=== PATIENT | female | born 1945 | race Caucasian/White ===

== ENCOUNTER 2017-06-13 14:45 | Inpatient (IN) | payer OTHER ==
[~2017-06-13] VITALS: Ht 165.1 cm; Wt 67.1 kg
[~2017-06-13 14:45] MED LIST: AMLODIPINE BESY10 MG PO; ASPI-COR81 M1 PO; CLINDAMYCIN HC300 MG PO; COREG25 MG PO; COUMADIN5 M2 PO; FLEXERIL5 MG PO; HYDROCODONE BIT1 T11 PO; KEFLEX500 MG PO; LEVAQUIN750 MG PO; LISINOPRIL20 MG PO; METFORMIN1000 MG PO; MOTRIN800 MG PO; NORVASC5 MG PO; PLAVIX75 MG PO; ULTRAM50 MG PO
[2017-06-13 14:51] VITALS: BP 125/71
[2017-06-13 15:20] LABS: BASO # 0.1 10*3/uL (0.0-0.1); BASO % 0.7 % (0.0-1.0); EOS # 0.2 10*3/uL (0.0-0.4); EOS % 2.5 % (1.0-4.0); HEMATOCRIT 33.3 % (37.0-47.0); HEMOGLOBIN 10.9 g/dl (12.0-16.0); LYMPH # 1.4 10*3/uL (1.3-4.4); LYMPH % 16.5 % (27.0-41.0); MEAN CELL VOLUME 94.1 fl (81.0-99.0); MEAN CORPUSCULAR HGB 30.8 pg (27.0-31.0); MEAN CORPUSCULAR HGB CONC 32.7 g/dl (33.0-37.0); MEAN PLATELET VOLUME 10.6 fl (9.6-12.3); MONO # 0.9 10*3/uL (0.1-1.0); MONO % 10.5 % (3.0-9.0); NEUT # 5.9 10*3/uL (2.3-7.9); NEUT % 69.4 % (47.0-73.0); PLATELET COUNT AUTOMATED 275 10*3/uL (130-400); RED BLOOD COUNT 3.54 10*6/uL (4.10-5.10); RED CELL DISTRI WIDTH 12.8 % (0-14.5); WHITE BLOOD COUNT 8.5 10*3/uL (4.8-10.8)
[2017-06-13 15:28] LABS: ACT PARTIAL THROMBO TIME 24.8 SECONDS (20.8-31.5)
[2017-06-13 15:36] LABS: ALBUMIN 3.3 gm/dl (3.1-4.5); ALKALINE PHOSPHATASE 74 U/L (45-117); BUN 26 mg/dl (7-24); CHLORIDE 103 mmol/L (98-107); CREATININE 1.37 mg/dL (0.55-1.02); POTASSIUM 4.3 mmol/L (3.5-5.1); SGOT/AST 14 IU/L (3-35); SGPT/ALT 21 U/L (12-78); SODIUM 138 mmol/L (136-145); TOTAL PROTEIN 6.6 gm/dL (6.4-8.2)
[2017-06-13 15:41] LABS: LIPASE 2376 U/L (73-393); TROPONIN I < 0.015 ng/ml (<0.045)
[2017-06-13 16:00] VITALS: BP 125/71
[2017-06-13 16:20] LABS: BILIRUBIN NEGATIVE (NEGATIVE); BLOOD NEGATIVE (NEGATIVE); CLARITY CLEAR (CLEAR); COLOR YELLOW (YELLOW); GLUCOSE NEGATIVE (NEGATIVE); KETONE NEGATIVE (NEGATIVE); LEUKO ESTERASE 1+ (NEGATIVE); NITRITE NEGATIVE (NEGATIVE); UROBILINOGEN 0.2 E.U./dl (0.2-1.0)
[2017-06-13 16:31] LABS: BACTERIA TRACE
--- NOTE | 2017-06-13 17:17 | NUR ---
PT STATES THAT ZOFRAN WAS EFFECTIVE AT THIS TIME. WILL CONTINUE TO MONITOR.
--- NOTE | 2017-06-13 18:00 | NUR ---
A 72, admitted to 5E, under the services of CHACORTA Ornelas DO with a diagnosis of PANCREATITIS, DIZZINESS, RENAL INSUFFICIENCY. Chief complaint is DIZZINESS. Patient arrived via bed from ER. Monitor applied. Initial assessment completed. Vital signs taken and recorded. CHACORTA ORNELAS DO notified of admission to the unit. Orders received. See assessment for past medical history, medications and allergies. Patient and/or family oriented to unit. visitation policy reviewed. Clothing/patient valuable form completed. MIKE MENJIVAR
[2017-06-13 18:06] VITALS: BP 150/90
[2017-06-13 20:00] VITALS: BP 159/71
[2017-06-14] VITALS: BP 128/89
--- NOTE | 2017-06-14 01:22 | NUR ---
24 HR chart check completed.
[2017-06-14 06:41] LABS: BASO # 0.1 10*3/uL (0.0-0.1); BASO % 0.8 % (0.0-1.0); EOS # 0.3 10*3/uL (0.0-0.4); EOS % 4.3 % (1.0-4.0); HEMATOCRIT 31.9 % (37.0-47.0); HEMOGLOBIN 10.5 g/dl (12.0-16.0); LYMPH # 1.3 10*3/uL (1.3-4.4); LYMPH % 21.1 % (27.0-41.0); MEAN CELL VOLUME 93.5 fl (81.0-99.0); MEAN CORPUSCULAR HGB 30.8 pg (27.0-31.0); MEAN CORPUSCULAR HGB CONC 32.9 g/dl (33.0-37.0); MEAN PLATELET VOLUME 10.8 fl (9.6-12.3); MONO # 0.8 10*3/uL (0.1-1.0); MONO % 13.6 % (3.0-9.0); NEUT # 3.7 10*3/uL (2.3-7.9); NEUT % 59.9 % (47.0-73.0); PLATELET COUNT AUTOMATED 261 10*3/uL (130-400); RED BLOOD COUNT 3.41 10*6/uL (4.10-5.10); RED CELL DISTRI WIDTH 12.8 % (0-14.5); WHITE BLOOD COUNT 6.1 10*3/uL (4.8-10.8)
[2017-06-14 07:16] LABS: ALBUMIN 3.1 gm/dl (3.1-4.5); ALKALINE PHOSPHATASE 66 U/L (45-117); CHLORIDE 107 mmol/L (98-107); CHOLESTEROL 105 mg/dL (<200); CREATININE 1.02 mg/dL (0.55-1.02); HDL CHOLESTEROL 51 mg/dl (40-60); LDL CHOLESTEROL 42 mg/dL (9-159); LIPASE 377 U/L (73-393); MAGNESIUM 1.6 mg/dL (1.5-2.1); POTASSIUM 3.7 mmol/L (3.5-5.1); SGOT/AST 11 IU/L (3-35); SGPT/ALT 17 U/L (12-78); SODIUM 143 mmol/L (136-145); TOTAL PROTEIN 6.2 gm/dL (6.4-8.2); TRIGLYCERIDES 59 mg/dl (<150); VLDL CHOLESTEROL 12 mg/dL (6-40)
[2017-06-14 07:23] LABS: BUN 16 mg/dl (7-24)
[2017-06-14 07:50] LABS: VITAMIN D, 25-HYDROXY 32.6 ng/mL (30-100)
[2017-06-14 08:00] VITALS: BP 152/64
--- NOTE | 2017-06-14 09:00 | NUR ---
Medical Laboratory Scientist in to talk to patient. Patient states lives at home with family. There are few steps in the home. Physician: iqra sanchez Pharmacy: [facility] Home health services: none Patient's level of ADLs: INDEPENDENT Patient has working utilities: all working DME: none Follow-up physician's appointment after d/c: will be made by hospitalist nurse director upon discharge Does patient want to access PORTAL?: no Discharge plan discussed with patient, patient lives at home with family, states she is independent in adls and ambulation, drives, but currently doesn't have a car, states her daughter takes her to get groceries, patient states she will be going back home and denies any home needs. DASH DANG
--- NOTE | 2017-06-14 09:04 | NUR ---
PATIENT TAKEN OFF FLOOR FOR SCHEDULED US OF GALLBLADDER.
--- NOTE | 2017-06-14 10:28 | NUR ---
PHYSICAL THERAPY Physical Therapy Evaluation completed this date. See eval document for complete details. No inpnt PT services needed at this time. Recommend OP PT to address back pain should symptoms not resolve by d/c[place] [id number] based on chart review and PT eval. Lilia Rhoades, PT
[2017-06-14 12:00] VITALS: BP 155/66
--- NOTE | 2017-06-14 13:56 | NUR ---
PT MEDICATED WITH IV MORPHINE SLOWLY PER PRN ORDER FOR C/O PAIN/DISCOMFORT. RATES PAIN 06/03. WILL MONITOR EFFECTIVENESS.
--- NOTE | 2017-06-14 14:30 | NUR ---
PATIENT STATES EARLIER PAIN MEDICATION NOT EFFECTIVE.
[2017-06-14] MEDS ORDERED: LASIX20 MG PO (15:07)
[2017-06-14] MEDS ORDERED: LISINOPRIL20 MG PO (15:08)
[2017-06-14] MEDS ORDERED: LIPITOR40 MG PO (15:09)
[2017-06-14] MEDS ORDERED: XANAX0.5 MG PO (15:11)
--- NOTE | 2017-06-14 15:18 | NUR ---
NOTIFIED REGARDING UPDATED MED REC.
[2017-06-14 16:00] VITALS: BP 160/58
--- NOTE | 2017-06-14 17:43 | NUR ---
PATIENT STATES SHE IS NO LONGER IN PAIN AT THIS TIME. RESPIRATIONS EASY, REGULAR. DENIES ANY SOB. WILL CONTINUE TO MONITOR. CALL LIGHT WITHIN REACH.
[2017-06-14 20:00] VITALS: BP 144/48
--- NOTE | 2017-06-14 20:00 | NUR ---
AMBULATING HALLWAY. STEADY GAIT. RESPIRATIONS EASY. NO DISTRESS NOTED. NO VOICED COMPLAINTS
--- NOTE | 2017-06-14 21:00 | NUR ---
RESTING IN BED WITH NO DISTRESS NOTED. RESPIRATIONS EASY. LUNGS DIMINISHED, CLEAR. PULSE OX 100% RA. DENIES ABD PAIN. CALL LIGHT WITHIN REACH. NO VOICED COMPLAINTS
[2017-06-15] VITALS: BP 160/62
--- NOTE | 2017-06-15 | NUR ---
SLEEPING. NO DISTRESS NOTED. RESPIRATIONS EASY. VSS. CALL LIGHT WITHIN REACH.
--- NOTE | 2017-06-15 06:00 | NUR ---
SLEPT THROUGHOUT NIGHT WITH NO DISTRESS NOTED. RESPIRATIONS EASY. DENIES ABD PAIN. CALL LIGHT WITHIN REACH. NO VOICED COMPLAINTS THIS SHIFT
[2017-06-15 08:00] VITALS: BP 180/76
--- NOTE | 2017-06-15 09:00 | NUR ---
case management visits with patient, patient denies any home needs at this time
[2017-06-15] MEDS ORDERED: CIPRO500 MG PO (11:38)
[2017-06-15] MEDS ORDERED: FLAGYL500 MG PO (11:38)
--- NOTE | 2017-06-15 12:11 | NUR ---
Discharge instructions reviewed with patient/family. Patient receptive and verbalizes understanding. Follow-up care arranged. Written instructions given to patient/family. EVONNE BARROSO
== END 2017-06-15 12:11 | disposition home or self-care (01) | DRG 438 ==
LOC: ED 14:45 → EDHOLD 16:10 → 5E 16:10
PROVIDERS: Internal Medicine; Physician Assistant; ADMIT Internal Medicine
DX: K85.90 Acute pancreatitis without necrosis or infection, unspecified (principal); N17.0 Acute kidney failure with tubular necrosis; E87.2 Acidosis; E44.0 Moderate protein-calorie malnutrition; N39.0 Urinary tract infection, site not specified; E11.65 Type 2 diabetes mellitus with hyperglycemia; D64.9 Anemia, unspecified; K52.9 Noninfective gastroenteritis and colitis, unspecified; E86.0 Dehydration; I25.10 Atherosclerotic heart disease of native coronary artery without angina pectoris; M51.36 Other intervertebral disc degeneration, lumbar region; I10 Essential (primary) hypertension; E78.5 Hyperlipidemia, unspecified; M19.90 Unspecified osteoarthritis, unspecified site; M47.896 Other spondylosis, lumbar region; G89.29 Other chronic pain; M54.9 Dorsalgia, unspecified; Z79.84 Long term (current) use of oral hypoglycemic drugs; Z88.0 Allergy status to penicillin; Z79.1 Long term (current) use of non-steroidal anti-inflammatories (NSAID); Z79.899 Other long term (current) drug therapy; I25.2 Old myocardial infarction; Z95.5 Presence of coronary angioplasty implant and graft; Z98.51 Tubal ligation status; Z80.1 Family history of malignant neoplasm of trachea, bronchus and lung; Z83.79 Family history of other diseases of the digestive system; Z68.24 Body mass index [BMI] 24.0-24.9, adult

== ENCOUNTER 2017-11-06 16:44 | Inpatient (IN) | payer OTHER ==
[~2017-11-06] VITALS: Ht 165.1 cm; Wt 68.2 kg
--- NOTE | ~2017-11-06 | ST ---
[place], [place] EXERCISE STRESS TEST REPORT [id number] UN[facility] #: [id number] ROOM: 507 DOCTOR: JONNA MARTÍNEZ [facility],[place] BIRTHDATE: [birth year] DOS: 11/08/2017 LEXISCAN REPORT The patient received Lexiscan 0.4 mg over 10 seconds. Heart rate is 98. Isotope was injected. Myocardial perfusion scan to follow. No complication noted. No electrocardiographic changes for myocardial ischemia noted. MACEY COYLE MD CM:STRESS:EXERCISE STRESS TEST REPORT [id number] BECKY NELSON MD [facility]
--- NOTE | ~2017-11-06 | EKG ---
[place], [place] ELECTROCARDIOGRAM REPORT NAME: MAEVE AYERS UNIT #: [id number] ROOM: 507 DOCTOR: JONNA MARTÍNEZ [facility],[place] BIRTHDATE: [birth year] DOS: 11/06/2017 TIME: 17:43. CONCLUSION: 1. Sinus. 2. Nonspecific ST changes, old anteroseptal infarction cannot be excluded. MACEY COYLE MD CM:EKGRPT:ELECTROCARDIOGRAM REPORT 1348 1431 MACEY COYLE MD [facility]
--- NOTE | ~2017-11-06 | EKG ---
[place], [place] ELECTROCARDIOGRAM REPORT NAME: MAEVE AYERS UNIT #: [id number] ROOM: 507 DOCTOR: JONNA MARTÍNEZ [facility],[place] BIRTHDATE: [birth year] DOS: 11/06/2017 TIME: 23:47 CONCLUSION: 1. Sinus. 2. Old anti-septal infarction. 3. Low voltage in limb leads, nonspecific ST changes. MACEY COYLE MD CM:EKGRPT:ELECTROCARDIOGRAM REPORT 1348 1429 MACEY COYLE MD [facility]
--- NOTE | ~2017-11-06 | EKG ---
[place], [place] ELECTROCARDIOGRAM REPORT NAME: MAEVE AYERS UNIT #: [id number] ROOM: 507 DOCTOR: JONNA MARTÍNEZ [facility],[place] BIRTHDATE: [birth year] DOS: 11/06/2017 TIME: 20:31. CONCLUSION: 1. Sinus. 2. Poor R-wave progression in the precordial leads, nonspecific ST changes. MACEY COYLE MD CM:EKGRPT:ELECTROCARDIOGRAM REPORT 1348 1430 MACEY COYLE MD [facility]
--- NOTE | ~2017-11-06 | CON ---
[place], [place] REPORT OF CONSULTATION NAME: MAEVE AYERS [facility] #: [id number] UNIT #: [id number] ROOM: 507 DOCTOR[facility] [birth year] DOS: 11/07/2017 CARDIOLOGY CONSULTATION PRIMARY CARE PHYSICIAN: Jake Fitch DO. HISTORY OF PRESENT ILLNESS: The patient is a 72-year-old female came in through the Emergency Room with right hand fracture and pain, has a cast now. The orthopedic surgeon is going to see her today. The patient also has upper chest discomfort radiating into the side of the neck and the arm. The patient denies any recent workup done for underlying coronary artery disease or ischemic heart disease. The patient apparently caught in and also fell down and had fracture of the right hand. The patient has history of burning sensation in the chest. History of coronary stents with coronary artery disease. No recent workup. The patient is not sure whether any recent stress or echocardiogram at least a couple of years. The patient eventually ____ under lot of stress as some of the members going through the detoxification. The patient also has extreme anxiety. The patient came to the Emergency Room. The patient denies any dizziness, syncope or presyncope. The patient has systolic hypertension and creatinine is 1.24 and probably mild chronic kidney disease, probably stage 3. The patient apparently has brittle bones and similar problem in the past. Diabetes mellitus, degenerative disk disease, dyslipidemia, history of hypertension, myocardial infarction in the past and has coronary stenting in the past. PAST SURGICAL HISTORY: The patient has a history of tubal ligation and coronary stent. SOCIAL HISTORY: The patient denies any smoking. No alcohol or illicit drugs, but there is a lot of secondhand smoking of most of the members in the house and she gets lot of that. PHYSICAL EXAMINATION: GENERAL: Alert, not in any acute distress. No jugular venous distention noted. VITAL SIGNS: Blood pressure 155/79, 156/49, 164/61, systolic hypertension and heart rate is about 70. Afebrile. SKIN: Warm, not diaphoretic. NECK: No jugular venous distention. LUNGS: No rales heard. HEART: S1, S2 regular. No gallops. ABDOMEN: Soft. Color is good. EXTREMITIES: No peripheral edema noted. Pulses are good. Posterior tibialis 3+. RECTAL, GENITAL AND BREASTS: Deferred unrelated. IMPRESSION: Underlying angina and coronary artery disease, coronary stent, hypertension, dyslipidemia, diabetes mellitus, secondary smoking significant. PLAN: Lexiscan with a Cardiolite to evaluate for ischemic heart disease and also echocardiogram. [place], [place] REPORT OF CONSULTATION NAME: MAEVE AYERS UNIT #: [id number] ROOM: 507 DOCTOR: JONNA MARTÍNEZ [facility],[place] BIRTHDATE: [birth year] MACEY COYLE MD CM:CONSTR:REPORT OF CONSULTATION 0752 11/07/17 0907 carlee VOGEL DO
[~2017-11-06 16:44] MED LIST changes: +CIPRO500 MG PO; +FLAGYL500 MG PO; +LASIX20 MG PO; +LIPITOR40 MG PO; +XANAX0.5 MG PO
[2017-11-06 17:05] VITALS: BP 153/81
[2017-11-06 17:56] LABS: BASO # 0.1 10*3/uL (0.0-0.1); BASO % 0.7 % (0.0-1.0); EOS # 0.2 10*3/uL (0.0-0.4); EOS % 2.4 % (1.0-4.0); HEMATOCRIT 34.3 % (37.0-47.0); HEMOGLOBIN 11.3 g/dl (12.0-16.0); LYMPH # 1.3 10*3/uL (1.3-4.4); MEAN CELL VOLUME 93.5 fl (81.0-99.0); MEAN CORPUSCULAR HGB 30.8 pg (27.0-31.0); MEAN CORPUSCULAR HGB CONC 32.9 g/dl (33.0-37.0); MEAN PLATELET VOLUME 10.3 fl (9.6-12.3); MONO # 0.8 10*3/uL (0.1-1.0); MONO % 10.9 % (3.0-9.0); NEUT # 5.1 10*3/uL (2.3-7.9); NEUT % 68.7 % (47.0-73.0); PLATELET COUNT AUTOMATED 311 10*3/uL (130-400); RED BLOOD COUNT 3.67 10*6/uL (4.10-5.10); RED CELL DISTRI WIDTH 12.8 % (0-14.5); WHITE BLOOD COUNT 7.4 10*3/uL (4.8-10.8)
[2017-11-06 18:08] LABS: ACT PARTIAL THROMBO TIME 23.5 SECONDS (20.8-31.5)
[2017-11-06 18:12] LABS: ALBUMIN 3.3 gm/dl (3.1-4.5); ALKALINE PHOSPHATASE 93 U/L (45-117); BUN 30 mg/dl (7-24); CHLORIDE 103 mmol/L (98-107); CREATININE 1.24 mg/dL (0.55-1.02); POTASSIUM 4.2 mmol/L (3.5-5.1); SGOT/AST 12 IU/L (3-35); SGPT/ALT 20 U/L (12-78); SODIUM 140 mmol/L (136-145); TOTAL PROTEIN 7.2 gm/dL (6.4-8.2)
[2017-11-06 18:13] LABS: TROPONIN I < 0.015 ng/ml (<0.045)
[2017-11-06 20:21] VITALS: BP 135/78
[2017-11-06 21:00] VITALS: BP 164/61
[2017-11-06] MEDS ORDERED: COREG12.5 M1 PO (21:12)
[2017-11-07] VITALS: BP 156/49
[2017-11-07 04:33] VITALS: BP 155/79
[2017-11-07 07:18] LABS: BASO # 0.1 10*3/uL (0.0-0.1); BASO % 0.9 % (0.0-1.0); EOS # 0.3 10*3/uL (0.0-0.4); EOS % 3.4 % (1.0-4.0); HEMATOCRIT 35.1 % (37.0-47.0); HEMOGLOBIN 11.6 g/dl (12.0-16.0); LYMPH # 1.3 10*3/uL (1.3-4.4); LYMPH % 16.3 % (27.0-41.0); MEAN CELL VOLUME 92.1 fl (81.0-99.0); MEAN CORPUSCULAR HGB 30.4 pg (27.0-31.0); MONO # 0.9 10*3/uL (0.1-1.0); MONO % 11.4 % (3.0-9.0); NEUT # 5.2 10*3/uL (2.3-7.9); NEUT % 67.6 % (47.0-73.0); PLATELET COUNT AUTOMATED 310 10*3/uL (130-400); RED BLOOD COUNT 3.81 10*6/uL (4.10-5.10); RED CELL DISTRI WIDTH 12.8 % (0-14.5); WHITE BLOOD COUNT 7.7 10*3/uL (4.8-10.8)
[2017-11-07 07:41] LABS: CHLORIDE 105 mmol/L (98-107); POTASSIUM 3.7 mmol/L (3.5-5.1); SODIUM 142 mmol/L (136-145)
[2017-11-07 08:00] VITALS: BP 144/64
[2017-11-07 08:22] LABS: ALBUMIN 3.2 gm/dl (3.1-4.5); ALKALINE PHOSPHATASE 81 U/L (45-117); BUN 24 mg/dl (7-24); CHOLESTEROL 130 mg/dL (<200); CREATININE 0.96 mg/dL (0.55-1.02); HDL CHOLESTEROL 64 mg/dl (40-60); LDL CHOLESTEROL 48 mg/dL (9-159); SGOT/AST 11 IU/L (3-35); SGPT/ALT 17 U/L (12-78); TOTAL PROTEIN 6.6 gm/dL (6.4-8.2); TRIGLYCERIDES 89 mg/dl (<150); VLDL CHOLESTEROL 18 mg/dL (6-40)
[2017-11-07 12:00] VITALS: BP 135/68
[2017-11-07 16:00] VITALS: BP 154/56
[2017-11-07 20:00] VITALS: BP 141/50
[2017-11-08] VITALS: BP 159/63
[2017-11-08 09:13] VITALS: BP 169/65
[2017-11-08 09:45] VITALS: BP 162/64
[2017-11-08 16:00] VITALS: BP 158/50
[2017-11-08 20:00] VITALS: BP 144/57
[2017-11-09] VITALS: BP 150/69
[2017-11-09 08:00] VITALS: BP 153/69
[2017-11-09 12:00] VITALS: BP 150/72
[2017-11-09] MEDS ORDERED: VITAMIN D-32000 UNIT PO (15:47)
== END 2017-11-09 16:35 | disposition home or self-care (01) | DRG 563 ==
LOC: ED 16:44 → EDHOLD 19:30 → 5E 19:30
PROVIDERS: Emergency Medicine; Family Medicine Adult Medicine
PROC: 4A02XM4 Measurement of Cardiac Total Activity, External Approach (ICD-10-PCS; principal; 2017-11-08)
PROC: 3E073KZ Introduction of Other Diagnostic Substance into Coronary Artery, Percutaneous Approach (ICD-10-PCS; 2017-11-08)
PROC: 2W3EX1Z Immobilization of Right Hand using Splint (ICD-10-PCS; 2017-11-08)
DX: S62.346B Nondisplaced fracture of base of fifth metacarpal bone, right hand, initial encounter for open fracture (principal); E11.22 Type 2 diabetes mellitus with diabetic chronic kidney disease; E11.65 Type 2 diabetes mellitus with hyperglycemia; I24.8 Other forms of acute ischemic heart disease; D64.9 Anemia, unspecified; E78.5 Hyperlipidemia, unspecified; N18.3 Chronic kidney disease, stage 3 (moderate); R07.9 Chest pain, unspecified; R94.30 Abnormal result of cardiovascular function study, unspecified; I12.9 Hypertensive chronic kidney disease with stage 1 through stage 4 chronic kidney disease, or unspecified chronic kidney disease; I25.119 Atherosclerotic heart disease of native coronary artery with unspecified angina pectoris; F41.9 Anxiety disorder, unspecified; W23.0XXA Caught, crushed, jammed, or pinched between moving objects, initial encounter; Y93.89 Activity, other specified; Y92.89 Other specified places as the place of occurrence of the external cause; Y99.8 Other external cause status; Z87.440 Personal history of urinary (tract) infections; I25.2 Old myocardial infarction; Z88.0 Allergy status to penicillin; Z95.5 Presence of coronary angioplasty implant and graft; Z98.51 Tubal ligation status; Z83.3 Family history of diabetes mellitus; Z82.3 Family history of stroke; Z83.79 Family history of other diseases of the digestive system; Z80.1 Family history of malignant neoplasm of trachea, bronchus and lung; Z84.89 Family history of other specified conditions; Z79.899 Other long term (current) drug therapy; Z79.02 Long term (current) use of antithrombotics/antiplatelets

== ENCOUNTER → 2018-01-28 | Outpatient (CLI) | payer OTHER ==
[~2018-01-28] MED LIST changes: +COREG12.5 M1 PO; +VITAMIN D-32000 UNIT PO
== END | disposition home or self-care (01) ==
LOC: RESCLI 02:50
DX: I12.9 Hypertensive chronic kidney disease with stage 1 through stage 4 chronic kidney disease, or unspecified chronic kidney disease (principal); E11.22 Type 2 diabetes mellitus with diabetic chronic kidney disease; N18.3 Chronic kidney disease, stage 3 (moderate); I25.10 Atherosclerotic heart disease of native coronary artery without angina pectoris; E78.5 Hyperlipidemia, unspecified; M19.90 Unspecified osteoarthritis, unspecified site; F41.9 Anxiety disorder, unspecified; M62.838 Other muscle spasm; Z88.0 Allergy status to penicillin

== ENCOUNTER 2018-04-14 19:39 | Emergency (ER) | payer OTHER ==
[~2018-04-14] VITALS: Ht 165.1 cm; Wt 63.0 kg
[2018-04-14 19:41] VITALS: BP 164/76
[2018-04-14] MEDS ORDERED: ANAPROX DS550 MG PO (21:28)
== END 2018-04-14 21:29 | disposition home or self-care (01) ==
LOC: ED 19:39
DX: M25.511 Pain in right shoulder (principal); M79.641 Pain in right hand; Z88.0 Allergy status to penicillin; Z79.899 Other long term (current) drug therapy

== ENCOUNTER → 2018-05-01 | Outpatient (CLI) | payer OTHER ==
[~2018-05-01] MED LIST changes: +ANAPROX DS550 MG PO
== END | disposition home or self-care (01) ==
LOC: RESCLI 08:58
DX: I12.9 Hypertensive chronic kidney disease with stage 1 through stage 4 chronic kidney disease, or unspecified chronic kidney disease (principal); E11.22 Type 2 diabetes mellitus with diabetic chronic kidney disease; N18.3 Chronic kidney disease, stage 3 (moderate); I25.10 Atherosclerotic heart disease of native coronary artery without angina pectoris; I95.1 Orthostatic hypotension; E78.5 Hyperlipidemia, unspecified; M19.90 Unspecified osteoarthritis, unspecified site; F41.9 Anxiety disorder, unspecified; E55.9 Vitamin D deficiency, unspecified; R53.1 Weakness; R42 Dizziness and giddiness; Z88.0 Allergy status to penicillin

== ENCOUNTER → 2018-05-01 | Outpatient (CLI) | payer OTHER | END | disposition home or self-care (01) | LOC: LAB 16:49 | PROVIDERS: Internal Medicine Nephrology | DX: R53.83 Other fatigue (principal) ==

== ENCOUNTER 2019-06-04 17:19 | Emergency (ER) | payer OTHER ==
[~2019-06-04] VITALS: Ht 165.1 cm; Wt 65.8 kg
[2019-06-04 17:21] VITALS: BP 172/68
[2019-06-04] MEDS ORDERED: CLEOCIN HCL150 MG PO (18:33)
== END 2019-06-04 18:52 | disposition home or self-care (01) ==
LOC: ED 17:19
DX: K04.7 Periapical abscess without sinus (principal); E11.9 Type 2 diabetes mellitus without complications; I10 Essential (primary) hypertension; I25.10 Atherosclerotic heart disease of native coronary artery without angina pectoris; Z95.5 Presence of coronary angioplasty implant and graft; Z98.51 Tubal ligation status; Z79.899 Other long term (current) drug therapy; Z88.0 Allergy status to penicillin; Z86.73 Personal history of transient ischemic attack (TIA), and cerebral infarction without residual deficits; Z86.718 Personal history of other venous thrombosis and embolism

== ENCOUNTER → 2019-10-16 | Outpatient (CLI) | payer OTHER ==
[~2019-10-16] MED LIST changes: +CLEOCIN HCL150 MG PO; +IMDUR SA60 M1 PO; +LEVAQUIN750 M1 PO
[2019-10-16 14:35] LABS: BASO # 0.1 10*3/uL (0.0-0.1); BASO % 0.8 % (0.0-1.0); EOS # 0.2 10*3/uL (0.0-0.4); EOS % 2.8 % (1.0-4.0); HEMATOCRIT 39.5 % (37.0-47.0); HEMOGLOBIN 12.7 g/dl (12.0-16.0); LYMPH # 1.4 10*3/uL (1.3-4.4); LYMPH % 18.6 % (27.0-41.0); MEAN CELL VOLUME 96.6 fl (81.0-99.0); MEAN CORPUSCULAR HGB 31.1 pg (27.0-31.0); MEAN CORPUSCULAR HGB CONC 32.2 g/dl (33.0-37.0); MEAN PLATELET VOLUME 10.5 fl (9.6-12.3); MONO # 0.9 10*3/uL (0.1-1.0); MONO % 11.9 % (3.0-9.0); NEUT # 4.9 10*3/uL (2.3-7.9); NEUT % 65.8 % (47.0-73.0); PLATELET COUNT AUTOMATED 269 10*3/uL (130-400); RED BLOOD COUNT 4.09 10*6/uL (4.10-5.10); WHITE BLOOD COUNT 7.4 10*3/uL (4.8-10.8)
[2019-10-16 15:04] LABS: ALBUMIN 3.4 gm/dl (3.1-4.5); CREATININE 1.4 mg/dL (0.55-1.02); PHOSPHOROUS 3.2 mg/dL (2.5-4.9); POTASSIUM 4.2 mmol/L (3.5-5.1); TOTAL PROTEIN 6.8 gm/dL (6.4-8.2)
== END | disposition home or self-care (01) ==
LOC: RESCLI 13:07
PROVIDERS: Hospitalist
DX: Z12.11 Encounter for screening for malignant neoplasm of colon (principal); Z12.39 Encounter for other screening for malignant neoplasm of breast; I12.9 Hypertensive chronic kidney disease with stage 1 through stage 4 chronic kidney disease, or unspecified chronic kidney disease; E11.22 Type 2 diabetes mellitus with diabetic chronic kidney disease; N18.3 Chronic kidney disease, stage 3 (moderate); I25.10 Atherosclerotic heart disease of native coronary artery without angina pectoris; E78.5 Hyperlipidemia, unspecified; M19.90 Unspecified osteoarthritis, unspecified site; E55.9 Vitamin D deficiency, unspecified; F41.9 Anxiety disorder, unspecified; Z79.899 Other long term (current) drug therapy; Z88.0 Allergy status to penicillin

== ENCOUNTER → 2019-11-10 | Outpatient (CLI) | payer OTHER ==
[2019-11-10 14:58] LABS: CREATININE 1.13 mg/dL (0.55-1.02); POTASSIUM 4.1 mmol/L (3.5-5.1)
[2019-11-11 10:06] LABS: CREATININE,URINE 28.4 mg/dL (Not Estab.)
== END | disposition home or self-care (01) ==
LOC: RESCLI 00:57
PROVIDERS: Hospitalist
DX: I13.0 Hypertensive heart and chronic kidney disease with heart failure and stage 1 through stage 4 chronic kidney disease, or unspecified chronic kidney disease (principal); E11.22 Type 2 diabetes mellitus with diabetic chronic kidney disease; N18.3 Chronic kidney disease, stage 3 (moderate); I25.10 Atherosclerotic heart disease of native coronary artery without angina pectoris; E78.5 Hyperlipidemia, unspecified; F41.9 Anxiety disorder, unspecified; E55.9 Vitamin D deficiency, unspecified; J30.2 Other seasonal allergic rhinitis; J32.1 Chronic frontal sinusitis; Z79.899 Other long term (current) drug therapy; Z88.0 Allergy status to penicillin

== ENCOUNTER 2019-11-19 19:06 | Inpatient (IN) | payer OTHER ==
[2019-11-19] VITALS (7 sets, daily range): BP systolic 166–222; BP diastolic 78–100
[~2019-11-19] VITALS: Ht 165.1 cm; Wt 69.9 kg
[~2019-11-19 19:06] MED LIST changes: -IMDUR SA60 M1 PO; -LEVAQUIN750 M1 PO
[2019-11-19 19:53] LABS: BASO # 0.1 10*3/uL (0.0-0.1); BASO % 0.6 % (0.0-1.0); EOS # 0.4 10*3/uL (0.0-0.4); EOS % 3.8 % (1.0-4.0); HEMATOCRIT 33.7 % (37.0-47.0); HEMOGLOBIN 10.8 g/dl (12.0-16.0); LYMPH # 0.8 10*3/uL (1.3-4.4); LYMPH % 7.8 % (27.0-41.0); MEAN CELL VOLUME 96.3 fl (81.0-99.0); MEAN CORPUSCULAR HGB 30.9 pg (27.0-31.0); MONO # 1.3 10*3/uL (0.1-1.0); MONO % 11.9 % (3.0-9.0); NEUT # 8.1 10*3/uL (2.3-7.9); NEUT % 75.4 % (47.0-73.0); PLATELET COUNT AUTOMATED 275 10*3/uL (130-400); RED CELL DISTRI WIDTH 13.3 % (0-14.5); WHITE BLOOD COUNT 10.8 10*3/uL (4.8-10.8)
[2019-11-19 20:04] LABS: ACT PARTIAL THROMBO TIME 24.9 SECONDS (20.0-32.1)
[2019-11-19 20:09] LABS: CREATININE 1.22 mg/dL (0.55-1.02); TOTAL PROTEIN 6.3 gm/dL (6.4-8.2)
[2019-11-19 20:10] LABS: TROPONIN I 0.033 ng/ml (<0.045)
[2019-11-19] MEDS ORDERED: LISINOPRIL20 MG PO (22:18)
[2019-11-20] VITALS: BP 150/80
[2019-11-20 01:43] LABS: BILIRUBIN NEGATIVE (NEGATIVE); BLOOD TRACE-INTACT (NEGATIVE); CLARITY CLEAR (CLEAR); COLOR YELLOW (YELLOW); GLUCOSE NEGATIVE (NEGATIVE); KETONE NEGATIVE (NEGATIVE); LEUKO ESTERASE TRACE (NEGATIVE); NITRITE NEGATIVE (NEGATIVE); PH 7.5 (5.0-9.0); UROBILINOGEN 0.2 E.U./dl (0.2-1.0)
[2019-11-20 06:16] LABS: BASO # 0.1 10*3/uL (0.0-0.1); BASO % 0.8 % (0.0-1.0); EOS # 0.2 10*3/uL (0.0-0.4); EOS % 2.2 % (1.0-4.0); HEMATOCRIT 33.1 % (37.0-47.0); HEMOGLOBIN 10.6 g/dl (12.0-16.0); LYMPH # 1.2 10*3/uL (1.3-4.4); LYMPH % 14.9 % (27.0-41.0); MEAN CELL VOLUME 94.3 fl (81.0-99.0); MEAN CORPUSCULAR HGB 30.2 pg (27.0-31.0); MEAN PLATELET VOLUME 11.4 fl (9.6-12.3); MONO # 1.1 10*3/uL (0.1-1.0); MONO % 13.6 % (3.0-9.0); NEUT # 5.7 10*3/uL (2.3-7.9); NEUT % 68.3 % (47.0-73.0); PLATELET COUNT AUTOMATED 278 10*3/uL (130-400); RED BLOOD COUNT 3.51 10*6/uL (4.10-5.10); RED CELL DISTRI WIDTH 13.2 % (0-14.5); WHITE BLOOD COUNT 8.3 10*3/uL (4.8-10.8)
[2019-11-20 06:31] LABS: ACT PARTIAL THROMBO TIME 26.1 SECONDS (20.0-32.1)
[2019-11-20 07:06] LABS: POTASSIUM 3.7 mmol/L (3.5-5.1)
[2019-11-20 07:22] LABS: CREATININE 1.16 mg/dL (0.55-1.02); FREE T4 1.21 ng/dl (0.76-1.46); PHOSPHOROUS 4.1 mg/dL (2.5-4.9); THYROID STIM HORMONE (HS) 2.31 uIU/ml (0.358-4.75); TOTAL PROTEIN 5.8 gm/dL (6.4-8.2)
[2019-11-20 07:29] LABS: VITAMIN D, 25-HYDROXY 37.5 ng/mL (30-100)
[2019-11-20 08:00] VITALS: BP 178/72
[2019-11-20 12:00] VITALS: BP 146/50
[2019-11-20 16:00] VITALS: BP 168/64
[2019-11-20 20:00] VITALS: BP 154/49; BP 154/52
[2019-11-21] VITALS: BP 168/50
[2019-11-21 06:24] LABS: BASO # 0.1 10*3/uL (0.0-0.1); BASO % 1.2 % (0.0-1.0); EOS # 0.5 10*3/uL (0.0-0.4); EOS % 7.5 % (1.0-4.0); HEMATOCRIT 32.3 % (37.0-47.0); HEMOGLOBIN 10.2 g/dl (12.0-16.0); LYMPH # 1.4 10*3/uL (1.3-4.4); LYMPH % 19.9 % (27.0-41.0); MEAN CORPUSCULAR HGB CONC 31.6 g/dl (33.0-37.0); MEAN PLATELET VOLUME 11.2 fl (9.6-12.3); MONO % 14.6 % (3.0-9.0); NEUT # 3.8 10*3/uL (2.3-7.9); NEUT % 56.7 % (47.0-73.0); PLATELET COUNT AUTOMATED 287 10*3/uL (130-400); RED CELL DISTRI WIDTH 13.2 % (0-14.5); WHITE BLOOD COUNT 6.8 10*3/uL (4.8-10.8)
[2019-11-21 06:45] LABS: CREATININE 1.29 mg/dL (0.55-1.02); POTASSIUM 3.9 mmol/L (3.5-5.1)
[2019-11-21 08:00] VITALS: BP 168/72
[2019-11-21 11:07] LABS: BILIRUBIN NEGATIVE (NEGATIVE); CLARITY CLEAR (CLEAR); COLOR YELLOW (YELLOW); GLUCOSE NEGATIVE (NEGATIVE); KETONE NEGATIVE (NEGATIVE)
[2019-11-21 11:08] LABS: BLOOD NEGATIVE (NEGATIVE); LEUKO ESTERASE 2+ (NEGATIVE); NITRITE NEGATIVE (NEGATIVE); PH 7.5 (5.0-9.0); RBC 0-2 rbc/hpf (0-2); SPECIFIC GRAVITY 1.005 (1.005-1.030); UROBILINOGEN 0.2 E.U./dl (0.2-1.0)
[2019-11-21] MEDS ORDERED: LEVAQUIN750 M1 PO (12:19)
[2019-11-21] MEDS ORDERED: COREG12.5 M1 PO (12:19)
[2019-11-21] MEDS ORDERED: IMDUR SA60 M1 PO (12:19)
[2019-11-21 12:20] VITALS: BP 128/70
== END 2019-11-21 14:50 | disposition home or self-care (01) | DRG 189 ==
LOC: ED 19:06 → EDHOLD 20:45 → 4E 20:45
PROVIDERS: Internal Medicine; Physician Assistant; ADMIT Family Medicine
DX: J81.0 Acute pulmonary edema (principal); J96.01 Acute respiratory failure with hypoxia; E44.1 Mild protein-calorie malnutrition; I16.1 Hypertensive emergency; D64.9 Anemia, unspecified; E11.65 Type 2 diabetes mellitus with hyperglycemia; Z68.25 Body mass index [BMI] 25.0-25.9, adult; I25.10 Atherosclerotic heart disease of native coronary artery without angina pectoris; E78.5 Hyperlipidemia, unspecified; E11.22 Type 2 diabetes mellitus with diabetic chronic kidney disease; N18.3 Chronic kidney disease, stage 3 (moderate); M51.37 Other intervertebral disc degeneration, lumbosacral region; D72.810 Lymphocytopenia; I12.9 Hypertensive chronic kidney disease with stage 1 through stage 4 chronic kidney disease, or unspecified chronic kidney disease; I25.2 Old myocardial infarction; Z88.0 Allergy status to penicillin; Z79.899 Other long term (current) drug therapy; Z95.5 Presence of coronary angioplasty implant and graft; Z98.51 Tubal ligation status; Z80.1 Family history of malignant neoplasm of trachea, bronchus and lung; Z83.79 Family history of other diseases of the digestive system

== ENCOUNTER 2020-02-09 08:47 | Emergency (ER) | payer OTHER ==
[~2020-02-09] VITALS: Ht 165.1 cm; Wt 68.0 kg
[~2020-02-09 08:47] MED LIST changes: +IMDUR SA60 M1 PO; +LEVAQUIN750 M1 PO
[2020-02-09 09:46] LABS: BASO # 0.1 10*3/uL (0.0-0.1); EOS # 0.3 10*3/uL (0.0-0.4); EOS % 3.3 % (1.0-4.0); HEMATOCRIT 34.8 % (37.0-47.0); LYMPH # 0.7 10*3/uL (1.3-4.4); LYMPH % 8.8 % (27.0-41.0); MEAN CORPUSCULAR HGB 30.5 pg (27.0-31.0); MEAN CORPUSCULAR HGB CONC 32.8 g/dl (33.0-37.0); MEAN PLATELET VOLUME 10.7 fl (9.6-12.3); MONO # 1.1 10*3/uL (0.1-1.0); MONO % 13.1 % (3.0-9.0); NEUT % 73.3 % (47.0-73.0); PLATELET COUNT AUTOMATED 279 10*3/uL (130-400); RED BLOOD COUNT 3.74 10*6/uL (4.10-5.10); RED CELL DISTRI WIDTH 13.8 % (0-14.5); WHITE BLOOD COUNT 8.2 10*3/uL (4.8-10.8)
[2020-02-09 09:47] LABS: BILIRUBIN NEGATIVE (NEGATIVE); BLOOD NEGATIVE (NEGATIVE); CLARITY CLEAR (CLEAR); COLOR YELLOW (YELLOW); GLUCOSE NEGATIVE (NEGATIVE); KETONE NEGATIVE (NEGATIVE); PH 6.5 (5.0-9.0); SPECIFIC GRAVITY 1.015 (1.005-1.030)
[2020-02-09 09:48] LABS: LEUKO ESTERASE TRACE (NEGATIVE); NITRITE NEGATIVE (NEGATIVE); UROBILINOGEN < 0.2 E.U./dl (0.2-1.0)
[2020-02-09 09:56] LABS: BUN 29 mg/dl (7-24); CHLORIDE 108 mmol/L (98-107); CREATININE 1.43 mg/dL (0.55-1.02); SODIUM 138 mmol/L (136-145)
[2020-02-09 09:58] LABS: TROPONIN I < 0.015 ng/ml (<0.045)
[2020-02-09] MEDS ORDERED: AVPAK AZITHROM250 MG PO (10:51)
[2020-02-09 10:53] VITALS: BP 178/84
[2020-02-09] MEDS ORDERED: TESSALON PERLE100 MG PO (11:09)
== END 2020-02-09 11:06 | disposition home or self-care (01) ==
LOC: ED 08:47
PROVIDERS: Emergency Medicine
DX: J90 Pleural effusion, not elsewhere classified (principal); J18.9 Pneumonia, unspecified organism; R05 Cough; I25.10 Atherosclerotic heart disease of native coronary artery without angina pectoris; I12.9 Hypertensive chronic kidney disease with stage 1 through stage 4 chronic kidney disease, or unspecified chronic kidney disease; E11.22 Type 2 diabetes mellitus with diabetic chronic kidney disease; N18.9 Chronic kidney disease, unspecified; E78.5 Hyperlipidemia, unspecified; Z88.0 Allergy status to penicillin; Z79.899 Other long term (current) drug therapy

== ENCOUNTER 2020-02-17 14:54 | Emergency (ER) | payer OTHER ==
[~2020-02-17] VITALS: Ht 165.1 cm; Wt 68.0 kg
[~2020-02-17 14:54] MED LIST changes: +AVPAK AZITHROM250 MG PO; +TESSALON PERLE100 MG PO
[2020-02-17 14:59] VITALS: BP 186/75
[2020-02-17] MEDS ORDERED: LEVOFLOXACIN500 MG PO (17:50)
== END 2020-02-17 18:00 | disposition home or self-care (01) ==
LOC: ED 14:54
DX: J18.9 Pneumonia, unspecified organism (principal); E11.9 Type 2 diabetes mellitus without complications; I10 Essential (primary) hypertension; I25.10 Atherosclerotic heart disease of native coronary artery without angina pectoris; Z88.0 Allergy status to penicillin; Z79.899 Other long term (current) drug therapy; Z86.73 Personal history of transient ischemic attack (TIA), and cerebral infarction without residual deficits

== ENCOUNTER 2020-04-10 01:30 | Observation (INO) | payer OTHER ==
[~2020-04-10] VITALS: Ht 167.6 cm; Wt 66.9 kg
[2020-04-10] VITALS (21 sets, daily range): BP systolic 126–212; BP diastolic 56–113
[~2020-04-10 01:30] MED LIST changes: +LEVOFLOXACIN500 MG PO
[2020-04-10 02:41] LABS: BASO % 0.5 % (0.0-1.0); EOS # 0.2 10*3/uL (0.0-0.4); HEMATOCRIT 34.9 % (37.0-47.0); MEAN CELL VOLUME 91.8 fl (81.0-99.0); MEAN CORPUSCULAR HGB 29.7 pg (27.0-31.0); MEAN CORPUSCULAR HGB CONC 32.4 g/dl (33.0-37.0); MEAN PLATELET VOLUME 11.3 fl (9.6-12.3); MONO # 1.1 10*3/uL (0.1-1.0); MONO % 13.6 % (3.0-9.0); NEUT # 5.6 10*3/uL (2.3-7.9); NEUT % 70.6 % (47.0-73.0); PLATELET COUNT AUTOMATED 242 10*3/uL (130-400); RED CELL DISTRI WIDTH 13.6 % (0-14.5); WHITE BLOOD COUNT 7.9 10*3/uL (4.8-10.8)
[2020-04-10 02:55] LABS: ACT PARTIAL THROMBO TIME 25.7 SECONDS (20.0-32.1)
[2020-04-10 02:56] LABS: ALBUMIN 3.1 gm/dl (3.1-4.5); ALKALINE PHOSPHATASE 86 U/L (45-117); BUN 26 mg/dl (7-24); CHLORIDE 109 mmol/L (98-107); LIPASE 197 U/L (73-393); POTASSIUM 3.5 mmol/L (3.5-5.1); SGOT/AST 14 IU/L (3-35); SGPT/ALT 25 U/L (12-78); SODIUM 140 mmol/L (136-145); TOTAL PROTEIN 6.5 gm/dL (6.4-8.2); TROPONIN I 0.026 ng/ml (<0.045)
[2020-04-10 07:40] LABS: CREATININE 1.16 mg/dL (0.55-1.02); POTASSIUM 3.7 mmol/L (3.5-5.1)
[2020-04-10 07:51] LABS: THYROID STIM HORMONE (HS) 1.43 uIU/ml (0.358-4.75)
[2020-04-10 08:26] LABS: VITAMIN D, 25-HYDROXY 35.5 ng/mL (30-100)
[2020-04-10 15:59] LABS: BILIRUBIN NEGATIVE (NEGATIVE); BLOOD 1+ (NEGATIVE); CLARITY SL CLOUDY (CLEAR); COLOR YELLOW (YELLOW); GLUCOSE NEGATIVE (NEGATIVE); KETONE NEGATIVE (NEGATIVE)
[2020-04-10 16:00] LABS: LEUKO ESTERASE 2+ (NEGATIVE); NITRITE NEGATIVE (NEGATIVE); UROBILINOGEN 0.2 E.U./dl (0.2-1.0)
[2020-04-10 16:07] LABS: BACTERIA 2+; WBC 21-30 wbc/hpf (0-5)
[2020-04-11] VITALS: BP 165/64
[2020-04-11 06:22] LABS: BASO % 0.4 % (0.0-1.0); EOS # 0.2 10*3/uL (0.0-0.4); EOS % 2.4 % (1.0-4.0); HEMATOCRIT 36.5 % (37.0-47.0); LYMPH % 14.2 % (27.0-41.0); MEAN CELL VOLUME 92.6 fl (81.0-99.0); MEAN CORPUSCULAR HGB 29.7 pg (27.0-31.0); MEAN CORPUSCULAR HGB CONC 32.1 g/dl (33.0-37.0); MEAN PLATELET VOLUME 10.8 fl (9.6-12.3); MONO % 13.9 % (3.0-9.0); NEUT # 4.9 10*3/uL (2.3-7.9); NEUT % 68.8 % (47.0-73.0); PLATELET COUNT AUTOMATED 230 10*3/uL (130-400); RED BLOOD COUNT 3.94 10*6/uL (4.10-5.10); RED CELL DISTRI WIDTH 13.7 % (0-14.5); WHITE BLOOD COUNT 7.1 10*3/uL (4.8-10.8)
[2020-04-11 06:48] LABS: CREATININE 1.18 mg/dL (0.55-1.02); POTASSIUM 3.7 mmol/L (3.5-5.1)
[2020-04-11 08:00] VITALS: BP 176/66
[2020-04-11 10:02] VITALS: BP 168/72
[2020-04-11] MEDS ORDERED: CARVEDILOL25 MG PO (10:54)
[2020-04-11] MEDS ORDERED: LISINOPRIL40 MG PO (10:54)
[2020-04-11 11:06] VITALS: BP 158/74
== END 2020-04-11 12:31 | disposition home or self-care (01) ==
LOC: ED 01:30 → EDHOLD 04:19 → 5E 04:19
PROVIDERS: Emergency Medicine Emergency Medical Services; Hospitalist; Internal Medicine; ADMIT Emergency Medicine
DX: R55 Syncope and collapse (principal); I16.0 Hypertensive urgency; E87.8 Other disorders of electrolyte and fluid balance, not elsewhere classified; E11.65 Type 2 diabetes mellitus with hyperglycemia; E78.5 Hyperlipidemia, unspecified; D64.9 Anemia, unspecified; E44.1 Mild protein-calorie malnutrition; I12.9 Hypertensive chronic kidney disease with stage 1 through stage 4 chronic kidney disease, or unspecified chronic kidney disease; E11.22 Type 2 diabetes mellitus with diabetic chronic kidney disease; N18.3 Chronic kidney disease, stage 3 (moderate); R09.89 Other specified symptoms and signs involving the circulatory and respiratory systems; Z79.4 Long term (current) use of insulin

== ENCOUNTER → 2020-04-20 | Outpatient (CLI) | payer OTHER ==
[~2020-04-20] MED LIST changes: +CARVEDILOL25 MG PO; +LISINOPRIL40 MG PO
== END | disposition home or self-care (01) ==
LOC: RESCLI 05:41
DX: I13.0 Hypertensive heart and chronic kidney disease with heart failure and stage 1 through stage 4 chronic kidney disease, or unspecified chronic kidney disease (principal); E11.22 Type 2 diabetes mellitus with diabetic chronic kidney disease; N18.3 Chronic kidney disease, stage 3 (moderate); I50.22 Chronic systolic (congestive) heart failure; J30.2 Other seasonal allergic rhinitis; F41.9 Anxiety disorder, unspecified; E78.5 Hyperlipidemia, unspecified; I25.10 Atherosclerotic heart disease of native coronary artery without angina pectoris; J41.1 Mucopurulent chronic bronchitis; J20.9 Acute bronchitis, unspecified; Z79.899 Other long term (current) drug therapy; Z95.828 Presence of other vascular implants and grafts; Z98.890 Other specified postprocedural states; Z88.0 Allergy status to penicillin

== ENCOUNTER 2020-06-16 13:04 | Emergency (ER) | payer OTHER ==
[~2020-06-16] VITALS: Ht 165.1 cm; Wt 65.8 kg
[2020-06-16 13:32] VITALS: BP 191/60
[2020-06-16] MEDS ORDERED: VIBRAMYCIN100 MG PO (18:31)
[2020-06-16] MEDS ORDERED: DOXYCYCLINE100 M3 PO (18:32)
== END 2020-06-16 18:45 | disposition home or self-care (01) ==
LOC: ED 13:04
DX: J40 Bronchitis, not specified as acute or chronic (principal); Z88.0 Allergy status to penicillin; Z79.899 Other long term (current) drug therapy

== ENCOUNTER → 2020-06-22 | Outpatient (CLI) | payer OTHER ==
[~2020-06-22] MED LIST changes: +DOXYCYCLINE100 M3 PO; +VIBRAMYCIN100 MG PO
== END | disposition home or self-care (01) ==
LOC: RESCLI 06:03
PROVIDERS: ATTEND Internal Medicine
DX: I25.10 Atherosclerotic heart disease of native coronary artery without angina pectoris (principal); I13.0 Hypertensive heart and chronic kidney disease with heart failure and stage 1 through stage 4 chronic kidney disease, or unspecified chronic kidney disease; E11.22 Type 2 diabetes mellitus with diabetic chronic kidney disease; N18.3 Chronic kidney disease, stage 3 (moderate); I50.22 Chronic systolic (congestive) heart failure; E78.5 Hyperlipidemia, unspecified; M19.90 Unspecified osteoarthritis, unspecified site; F41.9 Anxiety disorder, unspecified; E55.9 Vitamin D deficiency, unspecified; J30.2 Other seasonal allergic rhinitis; J41.1 Mucopurulent chronic bronchitis; Z79.899 Other long term (current) drug therapy; Z95.828 Presence of other vascular implants and grafts; Z98.890 Other specified postprocedural states; Z88.0 Allergy status to penicillin

== ENCOUNTER 2020-09-27 22:10 | Observation (INO) | payer MEDICARE ==
[~2020-09-27] VITALS: Ht 165.1 cm; Wt 77.1 kg
[2020-09-27 22:20] VITALS: BP 184/96
[2020-09-28 01:08] LABS: BASO # 0.1 10*3/uL (0.0-0.1); BASO % 1.2 % (0.0-1.0); EOS # 0.2 10*3/uL (0.0-0.4); EOS % 3.4 % (1.0-4.0); HEMATOCRIT 41.2 % (37.0-47.0); LYMPH # 0.5 10*3/uL (1.3-4.4); LYMPH % 9.1 % (27.0-41.0); MEAN CELL VOLUME 88.8 fl (81.0-99.0); MEAN CORPUSCULAR HGB 27.2 pg (27.0-31.0); MEAN CORPUSCULAR HGB CONC 30.6 g/dl (33.0-37.0); MEAN PLATELET VOLUME 10.8 fl (9.6-12.3); MONO # 0.8 10*3/uL (0.1-1.0); MONO % 16.1 % (3.0-9.0); NEUT # 3.5 10*3/uL (2.3-7.9); NEUT % 69.8 % (47.0-73.0); PLATELET COUNT AUTOMATED 268 10*3/uL (130-400); RED BLOOD COUNT 4.64 10*6/uL (4.10-5.10); RED CELL DISTRI WIDTH 14.4 % (0-14.5)
[2020-09-28 01:26] LABS: CREATININE 1.58 mg/dL (0.55-1.02); TROPONIN I 0.044 ng/ml (<0.045)
[2020-09-28] MEDS ORDERED: LASIX20 MG PO (01:41)
[2020-09-28] MEDS ORDERED: PLAVIX75 M1 PO (01:41)
[2020-09-28] MEDS ORDERED: METFORMIN HYD1000 MG PO (01:41)
--- NOTE | 2020-09-28 02:23 | NUR ---
PT TO REST ROOM AT THIS TIME. CONSULTING RESIDENTS. PT STATES SHE WOULD LIKE TO GO HOME AT THIS TIME. WILL CONTINUE TO MONITOR.
--- NOTE | 2020-09-28 02:35 | NUR ---
PT REFUSING COVID 19 TESTING AT THIS TIME. AWARE. PT BEING PLACED IN COVID PRECAUTIONS D/T XRAY RESULTS. CALL LIGHT WITH IN REACH. WILL CONTINUE TO MONITOR.
[2020-09-28 03:38] LABS: LDH 233 U/L (84-246)
[2020-09-28 06:04] VITALS: BP 178/81
[2020-09-28 06:14] LABS: BASO # 0.1 10*3/uL (0.0-0.1); BASO % 1.3 % (0.0-1.0); EOS # 0.2 10*3/uL (0.0-0.4); HEMATOCRIT 39.9 % (37.0-47.0); LYMPH # 0.5 10*3/uL (1.3-4.4); MEAN CELL VOLUME 89.5 fl (81.0-99.0); MEAN CORPUSCULAR HGB CONC 31.3 g/dl (33.0-37.0); MONO # 0.8 10*3/uL (0.1-1.0); NEUT # 3.7 10*3/uL (2.3-7.9); NEUT % 70.5 % (47.0-73.0); PLATELET COUNT AUTOMATED 266 10*3/uL (130-400); RED BLOOD COUNT 4.46 10*6/uL (4.10-5.10); RED CELL DISTRI WIDTH 14.5 % (0-14.5); WHITE BLOOD COUNT 5.2 10*3/uL (4.8-10.8)
[2020-09-28 06:29] LABS: POTASSIUM 3.7 mmol/L (3.5-5.1)
[2020-09-28 06:30] LABS: ACT PARTIAL THROMBO TIME 26.9 SECONDS (20.0-32.1); INTERNATIONAL NORM RATIO 1.1 (2.0-3.5)
--- NOTE | 2020-09-28 06:42 | NUR ---
PT REFUSED NASAL SWAB AGAIN AT THIS TIME. AWARE.
[2020-09-28 06:46] LABS: ALBUMIN 2.8 gm/dl (3.1-4.5); CREATININE 1.5 mg/dL (0.55-1.02); FREE T4 1.35 ng/dl (0.76-1.46); THYROID STIM HORMONE (HS) 6.39 uIU/ml (0.358-4.75); TOTAL PROTEIN 6.6 gm/dL (6.4-8.2)
--- NOTE | 2020-09-28 09:51 | NUR ---
CONTINUES TO REFUSE COVID SWAB.
--- NOTE | 2020-09-28 13:04 | NUR ---
BEFORE LUNCH BLOOD SUGAR WAS 265,COVERAGE OF 6 UNITS HUMALOG PER SLIDING SCALE.---LIZETTE BARAJAS RN
--- NOTE | 2020-09-28 13:06 | NUR ---
REPORT WAS GIVEN TO ME BY BROWN THAT THIS PT REFUSED THE COVID SWAB THAT WAS ORDERED EARLIER FOR HER.---LIZETTE BARAJAS RN
--- NOTE | 2020-09-28 16:42 | NUR ---
1630 BSBS IS 150.NO COVERAGE NEEDED.---LIZETTE BARAJAS RN
[2020-09-28 17:29] VITALS: BP 115/95
--- NOTE | 2020-09-28 18:52 | NUR ---
[place] 75, admitted to , under the services of AMERICA Lopez DO with a diagnosis of ACUTE KIDNEY INJURY, COUGH, HYPERGYLCEMIA. Chief complaint is BLE EDEMA, COUGH. Patient arrived via ambulatory from ER. Monitor applied. Initial assessment completed. Vital signs taken and recorded. AMERICA LOPEZ DO notified of admission to the unit. Orders received. See assessment for past medical history, medications and allergies. Patient and/or family oriented to unit. [address] visitation policy reviewed. Clothing/patient valuable form completed. EVELYN ROCA.
[2020-09-28 18:53] VITALS: BP 178/82
[2020-09-28] MEDS ORDERED: LOSARTAN POTASS50 M1 PO (19:11)
[2020-09-28 20:00] VITALS: BP 160/104
--- NOTE | 2020-09-28 22:15 | NUR ---
SPOKE TO , UPDATED ON BP OF 181/
[2020-09-29] VITALS: BP 181/74
[2020-09-29 01:10] VITALS: BP 182/96
--- NOTE | 2020-09-29 01:21 | NUR ---
SPOKE TO VIA PHONE, UPDATED ON BP 182/96.
[2020-09-29 03:12] VITALS: BP 143/62
[2020-09-29 06:29] LABS: CREATININE 1.34 mg/dL (0.55-1.02); POTASSIUM 3.9 mmol/L (3.5-5.1)
[2020-09-29 08:00] VITALS: BP 150/68; BP 178/86
--- NOTE | 2020-09-29 09:00 | NUR ---
Draw Bench Operator Helper in to talk to patient. Patient states lives at home with daughter. There are no steps in the home. Physician: [facility] Pharmacy: mail Home health services: none Patient's level of ADLs: INDEPENDENT Patient has working utilities: all working DME: none Follow-up physician's appointment after d/c: will be made by hospitalist nurse director upon discharge Does patient want to access PORTAL?: no Discharge plan discussed with patient by phone, she states she lives at home with her daughter. she states she is independent in adls and ambulation, she also states she will return home when discharged. discussed with her [facility] and educated her on the services they provide. she declined any home needs at this time. case management will follow. DASH DANG
[2020-09-29 12:00] VITALS: BP 154/72
[2020-09-29] MEDS ORDERED: TOPROL XL25 MG PO (14:09)
[2020-09-29] MEDS ORDERED: LIPITOR40 MG PO (14:09)
[2020-09-29] MEDS ORDERED: METFORMIN HYD1000 MG PO (14:09)
[2020-09-29] MEDS ORDERED: PLAVIX75 M1 PO (14:09)
[2020-09-29] MEDS ORDERED: LOSARTAN POTASS50 M1 PO (14:09)
[2020-09-29] MEDS ORDERED: LASIX40 MG PO (14:10)
--- NOTE | 2020-09-29 16:02 | NUR ---
Discharge instructions reviewed with patient/family. Patient receptive and verbalizes understanding. Follow-up care arranged. Written instructions given to patient/family. EVELYN ROCA.
--- NOTE | 2020-09-29 17:31 | NUR ---
PT DISCHARGED AT THIS TIME. BELONGINGS WITH PATIENT.
== END 2020-09-29 17:31 | disposition home or self-care (01) ==
LOC: ED 22:10 → EDHOLD 09-28 02:46 → ED 09-28 02:46 → EDHOLD 09-28 03:06 → 4E 09-28 18:04
PROVIDERS: Emergency Medicine; Hospitalist; Internal Medicine; ADMIT Student in an Organized Health Care Education/Training Program; ATTEND Student in an Organized Health Care Education/Training Program
DX: I16.1 Hypertensive emergency (principal); I13.0 Hypertensive heart and chronic kidney disease with heart failure and stage 1 through stage 4 chronic kidney disease, or unspecified chronic kidney disease; I50.23 Acute on chronic systolic (congestive) heart failure; N18.30 Chronic kidney disease, stage 3 unspecified; E11.65 Type 2 diabetes mellitus with hyperglycemia; R06.02 Shortness of breath; Z20.828 Contact with and (suspected) exposure to other viral communicable diseases; N17.0 Acute kidney failure with tubular necrosis; J90 Pleural effusion, not elsewhere classified; E78.5 Hyperlipidemia, unspecified; I25.10 Atherosclerotic heart disease of native coronary artery without angina pectoris; Z95.5 Presence of coronary angioplasty implant and graft; R09.89 Other specified symptoms and signs involving the circulatory and respiratory systems

== ENCOUNTER → 2020-10-05 | Outpatient (CLI) | payer MEDICARE ==
[~2020-10-05] MED LIST changes: +LASIX40 MG PO; +LOSARTAN POTASS50 M1 PO; +METFORMIN HYD1000 MG PO; +PLAVIX75 M1 PO; +TOPROL XL25 MG PO
== END | disposition home or self-care (01) ==
LOC: RESCLI 00:03
PROVIDERS: ATTEND Emergency Medicine
DX: I25.10 Atherosclerotic heart disease of native coronary artery without angina pectoris (principal); I13.0 Hypertensive heart and chronic kidney disease with heart failure and stage 1 through stage 4 chronic kidney disease, or unspecified chronic kidney disease; E11.22 Type 2 diabetes mellitus with diabetic chronic kidney disease; I50.22 Chronic systolic (congestive) heart failure; N18.30 Chronic kidney disease, stage 3 unspecified; E78.5 Hyperlipidemia, unspecified; M19.90 Unspecified osteoarthritis, unspecified site; F41.9 Anxiety disorder, unspecified; E55.9 Vitamin D deficiency, unspecified; J30.2 Other seasonal allergic rhinitis; J32.1 Chronic frontal sinusitis; Z09 Encounter for follow-up examination after completed treatment for conditions other than malignant neoplasm; Z79.82 Long term (current) use of aspirin; Z79.899 Other long term (current) drug therapy; Z88.0 Allergy status to penicillin

== ENCOUNTER → 2020-10-15 | Outpatient (CLI) | payer MEDICARE ==
[2020-10-15 17:09] LABS: CREATININE 1.58 mg/dL (0.55-1.02)
== END | disposition home or self-care (01) ==
LOC: LAB 16:14
PROVIDERS: ATTEND Internal Medicine
DX: I50.23 Acute on chronic systolic (congestive) heart failure (principal)

== ENCOUNTER → 2020-10-15 | Outpatient (CLI) | payer MEDICARE | END | disposition home or self-care (01) | LOC: RESCLI 09:44 | PROVIDERS: ATTEND Internal Medicine | DX: R60.0 Localized edema (principal); I13.0 Hypertensive heart and chronic kidney disease with heart failure and stage 1 through stage 4 chronic kidney disease, or unspecified chronic kidney disease; E11.9 Type 2 diabetes mellitus without complications; I50.23 Acute on chronic systolic (congestive) heart failure; Z79.84 Long term (current) use of oral hypoglycemic drugs; Z79.899 Other long term (current) drug therapy; Z88.0 Allergy status to penicillin; Z98.61 Coronary angioplasty status ==